=== PATIENT | female | born 1975 | race Caucasian/White ===

== ENCOUNTER 2016-12-24 20:05 | Emergency (ER) | payer MEDICAID ==
[~2016-12-24 20:05] MED LIST: CIPRO500 MG PO; FLA500 PO; LAC PO
[2016-12-24 20:51] LABS: BASOPHIL % 0.4 % (0-2); PLATELET COUNT 278 x10^3mcL (130-400)
[2016-12-24 20:52] LABS: RED CELL DISTRIBUTION WIDTH 15.9 % (11.5-14.5)
[2016-12-24 20:55] LABS: CALCIUM 9.2 mg/dL (8.5-10.1); CHLORIDE SERUM 104 mmol/L (98-107); CREATININE SERUM 0.8 mg/dL (0.6-1.0); GFR1 > 60 mL/min; GLUCOSE SERUM 115 mg/dL (74-106); POTASSIUM SERUM 3.3 mmol/L (3.5-5.1); SODIUM SERUM 140 mmol/L (136-145)
[2016-12-24 21:01] LABS: ALBUMIN 4.4 g/dL (3.4-5.0); ALKALINE PHOSPHATASE 71 U/L (46-116); ALT/SGPT 31 U/L (14-59); AST/SGOT 17 U/L (15-37); BILIRUBIN TOTAL 0.97 mg/dL (0.20-1.00); TOTAL PROTEIN, SERUM 8.1 g/dL (6.4-8.2)
[2016-12-24 21:18] LABS: AMPHETAMINE QUAL UR NONE DETECTED (NEG <=1000)
[2016-12-24 21:22] LABS: T4(THYROXINE) 9.5 ug/dL (4.7-13.3)
[2016-12-25 00:29] VITALS: BP 109/70
== END 2016-12-25 00:29 | disposition home or self-care (01) ==
LOC: ED 20:05
PROVIDERS: Emergency Medicine
DX: N83.202 Unspecified ovarian cyst, left side (principal)
CPT/HCPCS: 80307; 83880; 85378; C9113; J1885; Q0092